=== PATIENT | female | born 2000 | race Caucasian/White ===

== ENCOUNTER 2021-07-27 16:39 | Inpatient (IN) | payer OTHER ==
[~2021-07-27] VITALS: Ht 157.5 cm; Wt 86.6 kg
[2021-07-27] MEDS ORDERED: PRENATAL VITAM1 EAC3 PO (17:34)
[2021-07-27] MEDS ORDERED: FEOSOL325 MG PO (17:35)
[2021-07-27 18:47] LABS: HEMOGLOBIN 10.5 gm/dl (12.3-15.3); RED BLOOD COUNT 3.45 M/UL (4.00-5.10); WHITE BLOOD COUNT 10.3 K/UL (4.5-11.0)
[2021-07-28] MEDS ORDERED: COLACE 100MG C100 MG PO (15:06)
[2021-07-28] MEDS ORDERED: IBUPROFEN600 MG PO (15:06)
[2021-07-29 09:39] LABS: HEMOGLOBIN 9.9 gm/dl (12.3-15.3)
== END 2021-07-30 14:57 | disposition home or self-care (01) | DRG 807 ==
LOC: GENOP 16:39 → OB 17:32 → GENOP 17:33 → OB 17:33
PROVIDERS: ADMIT Obstetrics & Gynecology
PROC: 4A1HXCZ Monitoring of Products of Conception, Cardiac Rate, External Approach (ICD-10-PCS; 2021-07-27)
PROC: 10E0XZZ Delivery of Products of Conception, External Approach (ICD-10-PCS; principal; 2021-07-28)
PROC: 3E033VJ Introduction of Other Hormone into Peripheral Vein, Percutaneous Approach (ICD-10-PCS; 2021-07-28)
PROC: 0HQ9XZZ Repair Perineum Skin, External Approach (ICD-10-PCS; 2021-07-28)
DX: O70.0 First degree perineal laceration during delivery (principal); Z37.0 Single live birth; Z3A.40 40 weeks gestation of pregnancy; Z20.822 Contact with and (suspected) exposure to COVID-19
CPT/HCPCS: 36415; 51702; 81001; 82800; 85014; 85018; 85025; 90715; J0595; J2405; J2590; J7120